=== PATIENT | female | born 1950 | race Caucasian/White ===

== ENCOUNTER 2022-09-24 06:11 | Observation (INO) ==
[~2022-09-24 06:11] MED LIST: Buffered Lidocaine 1% SYRIN 1 ml INTRADERM ONE; HYDROmorphone 1 MG/1 ML SYRINGE IV PRN; Lactated Ringers 1000 ml BAG 1,000 ML IV SCH; Naloxone 0.4 mg VIAL 0.4 mg/ml 1 ml VIAL IV PRN; Ondansetron 4 mg VIAL 2 MG/ML 2 ml VIAL IV PRN; fentaNYL 100 mcg/2 ml 50 MCG/ML VIAL IV PRN
[2022-09-24] MEDS ORDERED: ceFAZolin 2 GM PREMIX 2 GM/50 ML BAG ONE (06:46)
[2022-09-24] MEDS ORDERED: Midazolam 2 mg/2 ml VIAL 1 mg/ml 2 ml VIAL (2 mg) ONE (07:19)
[2022-09-24] MEDS ORDERED: Rocuronium 50 mg VIAL 10 mg/ml 5 ml VIAL (50 mg) ONE ×2 (07:19→08:40)
[2022-09-24] MEDS ORDERED: fentaNYL 250 mcg/5 ml 50 MCG/ML 5 ml VIAL (250 MCG) ONE (07:19)
[2022-09-24] MEDS ORDERED: Lidocaine 2% PF 5 ML VIAL ONE (07:22)
[2022-09-24] MEDS ORDERED: Propofol 10 MG/ML 20 ML BTL ONE (07:23)
[2022-09-24] MEDS ORDERED: Thrombin 5,000 UNITS(BOVINE) for Ultrasound Guided Pseudoaneursym ONE (07:39)
[2022-09-24] MEDS ORDERED: Gelfoam Sponge SIZE 100 SPONGE ONE (07:39)
[2022-09-24] MEDS ORDERED: Lidocaine 2% w EPI 1:100,000 20 ML MDV VIAL ONE (07:39)
[2022-09-24] MEDS ORDERED: Thrombin 5,000 UNITS 1 APPLIC KIT - topical use - TOPICAL ONE (07:39)
[2022-09-24] MEDS ORDERED: HYDROmorphone 0.5 MG/0.5 ML SYRINGE ONE (08:00)
[2022-09-24] MEDS ORDERED: Dexamethasone IV 4 MG/ML VIAL 1 ml VIAL ONE (08:05)
[2022-09-24] MEDS ORDERED: Ondansetron 4 mg VIAL 2 MG/ML 2 ml VIAL ONE (08:05)
[2022-09-24] MEDS ORDERED: Phenylephrine 40 mcg/mL 10mL (400mcg) SYRINGE ONE (08:20)
[2022-09-24] MEDS ORDERED: Acetaminophen IV 1 GM/100ML 1,000 MG/100 ML BAG IV ONE (08:32)
[2022-09-24] MEDS ORDERED: HYDROcodone/ACETAMIN 5/325 mg TAB PO PRN (09:54)
[2022-09-24] MEDS ORDERED: Ondansetron 4 mg VIAL 2 MG/ML 2 ml VIAL IV PRN (09:54)
[2022-09-24] MEDS ORDERED: Senna TAB 8.6 mg TAB PO PRN (09:58)
[2022-09-24] MEDS ORDERED: Morphine 2 MG/ML SYRINGE IV PRN (09:58)
[2022-09-24] MEDS ORDERED: Lactated Ringers 1000 ml BAG 1,000 ML IV SCH (10:00)
[2022-09-25 08:28] VITALS: BP 128/70
== END 2022-09-25 09:25 | disposition home or self-care (01) ==
LOC: OR 06:11 → SSU 06:11
PROVIDERS: ADMIT Neurological Surgery; ATTEND Neurological Surgery